=== PATIENT | female | born 1960 | race Caucasian/White ===

== ENCOUNTER 2016-07-29 19:22 | Emergency (ER) | payer OTHER ==
[~2016-07-29] VITALS: Ht 175.3 cm; Wt 71.1 kg
[~2016-07-29 19:22] MED LIST: ALBU8I INH; K-TA10TA5 PO; KONS520C PO; NEXI40CA PO; PRAM1 PO; PROZ20CA11 PO; QUET25 PO; TRIA50 PO
[2016-07-29 19:45] VITALS: BP 136/89; PULSE 81; RESP 18; TEMP 99.2; O2SAT 98
[2016-07-29 20:40] VITALS: BP 136/89; PULSE 81; RESP 18; TEMP 99.2; O2SAT 98
[2016-07-29] MEDS ORDERED: PRAM1 PO (20:44)
[2016-07-29] MEDS ORDERED: VIST25CA PO (20:44)
[2016-07-29] MEDS ORDERED: FLUO1TAB3 PO (20:44)
--- NOTE | 2016-07-29 20:56 | PD ---
HPI Chief Complaint: Cold / Flu Symptoms Time Seen by Provider: 20:49 Travel History International Travel<30 days: No Contact w/Intl Traveler<30days: No Traveled to known affect area: No History of Present Illness HPI 56-year-old female presents to the emergency Department with complaint of right ear pain, sore throat, fever, body aches, headache since approximately 4 AM this morning. Others are sick like her in the house. MAXIMUM TEMPERATURE of 102. Has taken aspirin with no relief of symptoms. Denies chest pain or shortness of breath. Reports tobacco use daily. Denies lump in throat, difficulty swallowing, unusual drooling. Reports painful swallowing. Reports seeing white stuff in the back of her throat. Denies cough or nasal congestion. Reports nausea without vomiting. Denies abdominal pain. Allergies to soy protein. No other modifying factors or associated signs and symptoms. PFSH Past Medical History Arthritis: Yes Anxiety: No Depression: Yes Cancer: Yes (right breast -lumpectomy 4 yrs ago) Chemotherapy: No Diminished Hearing: No Endocrine: No Gastrointestinal Disorders: Yes (CONSTIPATION ) GERD: Yes Genitourinary: No Hypertension: Yes (takes no meds) Immune Disorder: No Implanted Vascular Access Dvce: Yes Musculoskeletal: Yes Neurologic: No Psychiatric: Yes (HX DEPRESSION ) Reproductive: Yes (CYSTS AND BREAST CA ) Respiratory: No Immunizations Current: Yes Radiation Therapy: Yes Tetanus Vaccination: > 5 Years Influenza Vaccination: No Menopausal: Yes Ovarian Cysts: Yes Past Surgical History Body Medical Devices: "SOLID BREAST IMPLANTS" Genitourinary Surgery: Yes (bladder lift with mesh placement) Gynecologic Surgery: Yes (cervical cyro done, ovarian cyst removed., BREAST CA W/LYMPH REMOVED) Hysterectomy: Yes Joint Replacement: Yes (NECK PLATES AND SCREWS ) Other Surgery: Yes (fx neck metal plate in screws placed 6 yrs ago) Social History Alcohol Use: No (denies) Tobacco Use: Yes (1 ppd) Substance Use: No Allergies-Medications (Allergen,Severity, Reaction): Coded Allergies: Soy Protein (Verified Allergy, Unknown, 07/29/16) Reported Meds & Prescriptions Reported Meds & Active Scripts Active Reported Mirapex (Pramipexole Dihydrochloride) 1 Mg Tab 1 Mg PO DAILY Vistaril (Hydroxyzine Pamoate) 25 Mg Cap 25 Mg PO BID Fluoxetine (Fluoxetine HCl) 20 Mg Tab 20 Mg PO TID Review of Systems Except as stated in HPI: all other systems reviewed are Neg Physical Exam Narrative GENERAL: Well-nourished, well-developed female patient, in no acute distress; low-grade fever 99.2; nontoxic appearing SKIN: Warm and dry. No rash. HEAD: Atraumatic. Normocephalic. EYES: Pupils equal and round at 3 mm with brisk reaction. No scleral icterus. No injection or drainage. PERRLA. ENT: Mucosa pink and dry. Pharynx with erythema and exudate; without edema. No Uvular edema. No uvular, palatal, or tonsillar deviation. Airway patent. EARS: Bilateral pinnae and external canals appear within normal limits. Bilateral tympanic membranes without erythema, dullness or perforation.. NECK: Trachea midline. Anterior cervical lymphadenopathy and tenderness. CARDIOVASCULAR: Regular rate and rhythm. No murmur appreciated. RESPIRATORY: No accessory muscle use. Clear to auscultation. Breath sounds equal bilaterally. GASTROINTESTINAL: Abdomen soft, non-tender, nondistended. Hepatic and splenic margins not palpable. Bowel sounds are active 4 quadrants. MUSCULOSKELETAL: No obvious deformities. No clubbing. No cyanosis. No edema. NEUROLOGICAL: Awake and alert. Oriented 3. No obvious cranial nerve deficits. Motor grossly within normal limits. Normal speech. Moves all extremities. PSYCHIATRIC: Appropriate mood and affect; insight and judgment normal. Data Data Last Documented VS Vital Signs Date Time Temp Pulse Resp B/P Pulse Ox O2 Delivery O2 Flow Rate FiO2 07/29/16 20:40 99.2 81 18 136/89 98 07/29/16 19:45 Room Air Orders Influenzae A/B Antigen (07/29/16 20:49) Group A Rapid Strep Screen (07/29/16 20:49) Ibuprofen (Motrin) (07/29/16 21:00) MDM Medical Decision Making Medical Screen Exam Complete: Yes Emergency Medical Condition: Yes Medical Record Reviewed: Yes Differential Diagnosis Strep pharyngitis, viral pharyngitis, influenza, viral illness Narrative Course 56-year-old female with sore throat, right ear pain, and fever times one day. MAXIMUM TEMPERATURE of 102. Low-grade fever of 99.2 here in the ER. Nontoxic appearing. Oropharynx is erythematous without tonsillar edema; there appears to be some exudate. Patient has anterior cervical lymphadenopathy and tenderness on palpation. She denies cough. Ibuprofen administered in ER. Influenza and rapid strep ordered. 220: Rapid strep positive. Influenza negative. Penicillin, Magic mouthwash, ibuprofen prescribed for home. Patient is medically cleared and stable for discharge. Discussed reasons to return to the emergency department. Instructed patient to follow up with primary care provider. Patient agrees with treatment plan. The patients vital signs are stable and the patient is stable for outpatient follow-up and treatment. Patient discharged home, stable and in no acute distress. Diagnosis Primary Impression: Group A streptococcal infection Referrals: Primary Care Physician Patient Instructions: General Instructions, Strep Throat (ED) Additional Instructions: Take Antibiotics as prescribed and complete full course of antibiotics Get plenty of sleep/rest Rest your voice Drink plenty of fluids to prevent dehydration Use warm saltwater gargles to soothe throat pain Use an air humidifier/turn off ceiling fans Use throat lozenges as needed for sore throat Use ibuprofen or acetaminophen as needed to relieve pain and fever Follow-up with your primary care provider Return immediately to the emergency department Med/Other Pt SpecificInfo: Prescription(s) given Scripts Ibuprofen 800 Mg [id number] Mg PO Q6HR PRN (PAIN) #30 TAB Ref 0 Prov:Ryanne Chacko 07/29/16 Tufhukcy-Htaqmbwgavlwkih-Iaidhizrb Liq (Magic Mouthwash Adult Liq)120 Ml Susp5 Ml SWISH-SPIT Q3HR PRN (SORE THROAT) #120 ML Ref 0 Each 5 mL contains: Nystatin 200,000 units, Diphenhydramine 4.25 mg, Viscous Lidocaine 10 mg, David syrup 0.8 mL Prov:Ryanne Chacko 07/29/16 Penicillin V Potassium 500 Mg [id number] Mg PO BID 10 Days Ref 0 Prov:Ryanne Chacko 07/29/16 Disposition: 01 DISCHARGE HOME Condition: Stable Ryanne Chacko Jul 29, 2016 20:56
[2016-07-29] MEDS ORDERED: IBUPROFEN 800 MG TAB PO ONE (21:00)
[2016-07-29] MEDS ORDERED: ACETAMINOPHEN 325 MG TAB PO ONE (21:15)
[2016-07-29] MEDS ORDERED: PENI500T PO (22:04)
[2016-07-29] MEDS ORDERED: IBUP800T23 PO (22:04)
[2016-07-29] MEDS ORDERED: MAGICADU2 SWISH-SPIT (22:04)
== END 2016-07-29 22:10 | disposition home or self-care (01) ==
LOC: PHED 19:22 → PHEFT 22:10
DX: J02.0 Streptococcal pharyngitis (principal); B95.0 Streptococcus, group A, as the cause of diseases classified elsewhere
CPT/HCPCS: 87804; 87880; 99284